=== PATIENT | male | born 1960 | race Hispanic/Latino ===

== ENCOUNTER 2025-02-11 11:20 | Emergency (ER) | payer MEDICARE ==
[~2025-02-11] VITALS: Ht 167.6 cm; Wt 70.3 kg
[2025-02-11 12:01] LABS: IMMATURE GRANULOCYTE ABSOLUTE 1.88 K/uL (0-1); NUCLEATED RED BLOOD CELLS 0.0 % (0.0-0.19); PLATELET COUNT (AUTO) 236 K/uL (130-400); RED BLOOD CELL COUNT(AUTO) 4.96 MIL/uL (4.50-6.20); RED CELL DISTRIBUTION WIDTH 13.7 % (11.0-15.5); WHITE BLOOD COUNT (AUTO) 24.3 K/uL (4.8-10.8)
[2025-02-11 12:08] LABS: CREATININE 1.0 mg/dL (0.5-1.3); GLOMERULAR FILTR. RATE CALC 84.0 mL/min (>90); GLUCOSE,RANDOM 173.0 mg/dL (70-105); SODIUM SERUM 133.0 mmol/L (136-145); UREA NITROGEN, BLOOD 20.0 mg/dL (7-18)
[2025-02-11 12:32] LABS: APPEARANCE,URINE CLOUDY (CLEAR); GLUCOSE, URINE (UA) NEGATIVE (NEGATIVE); LEUKOCYTE ESTERASE ,URINE NEGATIVE Leu/uL (NEGATIVE); NITRATE,URINE NEGATIVE (NEGATIVE); OCCULT BLOOD,URINE SMALL (NEGATIVE)
[2025-02-11 12:33] LABS: ADD UA MICROSCOPIC YES
[2025-02-11 12:40] LABS: SQUAMOUS EPITHELIAL CELL,UR RARE /HPF (0-2)
--- NOTE | 2025-02-11 12:48 | HMCIMG ---
EXAM: CR Chest, 1 View. CLINICAL HISTORY: left sided cp COMPARISON: None provided. FINDINGS: LUNGS: Airspace disease in the left perihilar and left basilar region, may reflect an infectious and/or inflammatory process. PLEURAL SPACES: No evidence of pleural effusion or pneumothorax. MEDIASTINUM: The cardiomediastinal silhouette is within normal limits. BONES: No acute osseous abnormality. IMPRESSION: 1. Airspace disease in the left perihilar and left basilar region, possibly representing infection and/or inflammation. /[place]
[2025-02-11 12:49] LABS: CREATINE KINASE, TOTAL 12.0 U/L (21-232)
--- NOTE | 2025-02-11 13:37 | EKG ---
[facility] Test Date: 2025-02-11 Test Time: 12:53:27 Pat Name: MARITZA DOMINGUEZ Department: ED Room: Gender: M [employer]: [facility] : 1960 Requested By: JAIR KWOK Order Number: [id number] Reading MD: Geovanny Catherine Measurements Intervals [place] Rate: 112 P: 41 FL: 149 QRS: -42 QRSD: 89 T: 34 QT: 303 QTc: 414 Interpretive Statements Sinus tachycardia Probable left ventricular hypertrophy ST elevation, consider anterolateral injury vs early repolarization No previous ECG available for comparison Electronically Signed On 02-11-2025 18:07:37 CDT by Geovanny Catherine Please click the below link to view image of tracing.
[2025-02-11] MEDS ORDERED: AZIT250T9 PO (13:52)
[2025-02-11] MEDS ORDERED: AMOX1TAB16 PO (13:52)
--- NOTE | 2025-02-11 13:53 | ERN ---
General Chief Complaint: Other Problems Stated Complaint: BODYACHES Time Seen by MD: 11:25 Time Seen by Midlevel: 11:25 Source: patient History of Present Illness Initial Comments 64-year-old male presents to the ER for evaluation of generalized body weakness and left-sided chest pain. Denies any other symptoms Allergies: Coded Allergies: No Known Drug Allergies (Unverified Allergy, Unknown, 02/11/25) Past Medical History Past Medical History: No Pertinent History Past Surgical History: None ROS Dictation CONSTITUTIONAL: Negative except for HPI HEAD/FACE: Negative except for HPI EENT: Negative except for HPI RESPIRATORY: Negative except for HPI GASTROINTESTINAL/ABDOMINAL: Negative except for HPI GENITOURINARY: Negative except for HPI MUSCULOSKELETAL: Negative except for HPI INTEGUMENTARY: Negative except for HPI NEUROLOGICAL/PSYCH: Negative except for HPI HEMATOLOGIC/LYMPHATIC: Negative except for HPI All Systems Negative, Except as noted above. 13 point review of systems assessed and all negative except for above. Physical Exam Physical Exam Dictation Vital Signs reviewed General Appearance: Alert, oriented x 3, no acute distress, well developed, nourished. Head and Face: non-traumatic. Eyes: PERRL, pink conjunctivas, eyelid no trauma, anterior chamber with arcus senilis. Ears: Pinnas intact and no signs of trauma or erythema ear canals clear and no discharge TM no erythema Nose: No discharge, no bleeding. Oropharynx: Mouth normal, tongue pink, pharynx clear,no erythema, tonsils no exudates, no abscesses noted, mucous membrane moist Neck: Supple, non-tender, no thyromegaly, no masses, no JVD, no bruits Breast:Deferred Chest:No tenderness, no crepitus, no paradoxical movement, no retractions Lungs: Rales to the left lung chun, well-ventilated, symmetric,, no wheezing, no rhonchi, no stridor, good breath sounds bilaterally Heart: Regular rate, regular rhythm, no murmur, no gallops Vascular: no peripheral edema, Abdomen: Soft, positive bowel sounds, nondistended, no guarding, nontender, no rebound, no masses no hepatomegaly, no splenomegaly, no Gibbs's sign, no hernias. Rectal: Deferred Genital: Deferred Neurological: Normal speech, motor function intact, sensory function intact Musculoskeletal: Neck nontender, full range of motion, back nontender, full range of motion, Extremities: nontender, full range of motion Skin: Color pink, dry, no turgor, no rash, no lacerations, no abrasions, no contusions. Lymphatic: Deferred Results Laboratory and Microbiology Lab and Micro Result Laboratory Tests Test 02/11/25 11:45 02/11/25 12:13 White Blood Count 24.3 K/uL (4.8-10.8) H Red Blood Count 4.96 MIL/uL (4.50-6.20) Hemoglobin 13.8 g/dL (14.0-18.0) L Hematocrit 40.8 % (42-54) L Mean Corpuscular Volume 82.3 fL (79-99) Mean Corpuscular Hemoglobin 27.8 pg (27.0-33.0) Mean Corpuscular Hemoglobin Concent 33.8 g/dL (32.0-36.0) Red Cell Distribution Width 13.7 % (11.0-15.5) Platelet Count 236 K/uL (130-400) Mean Platelet Volume 9.5 fL (7.5-10.5) Immature Granulocyte % (Auto) 7.7 % (0-1) H Neutrophils (%) (Auto) 78.9 % (40.0-77.0) H Lymphocytes (%) (Auto) 5.2 % (21.0-51.0) L Monocytes (%) (Auto) 7.6 % (3.0-13.0) Eosinophils (%) (Auto) 0.1 % (0.0-8.0) Basophils (%) (Auto) 0.5 % (0.0-5.0) Neutrophils # (Auto) 19.2 K/uL (1.8-7.7) H Lymphocytes # (Auto) 1.3 K/uL (1.0-4.8) Monocytes # (Auto) 1.8 K/uL (0.1-1.0) H Eosinophils # (Auto) 0.02 K/uL (0.00-0.70) Basophils # (Auto) 0.12 K/uL (0.00-0.20) Absolute Immature Granulocyte (auto 1.88 K/uL (0-1) H Nucleated Red Blood Cells 0.0 % (0.0-0.19) White Cell Morphology Comment See comments Sodium Level 133 mmol/L (136-145) L Potassium Level 3.7 mmol/L (3.5-5.1) Chloride Level 97 mmol/L (101-111) L Carbon Dioxide Level 31 mmol/L (21-32) Blood Urea Nitrogen 20 mg/dL (7-18) H Creatinine 1.0 mg/dL (0.5-1.3) Glomerular Filtration Rate Calc 84 mL/min (>90) Random Glucose 173 mg/dL (70-105) H Total Calcium 8.7 mg/dL (8.5-10.1) Magnesium Level 2.00 mg/dL (1.80-2.40) Total Creatine Kinase 12 U/L (21-232) L Troponin I High Sensitivity < 4 ng/L (4-75) L Urine Color YELLOW (YELLOW) Urine Appearance CLOUDY (CLEAR) H Urine pH 5.5 (5.0-8.0) Urine Specific [place] 1.021 (1.001-1.031) Urine Protein 30 mg/dL (NEGATIVE) H Urine Glucose (UA) NEGATIVE mg/dL (NEGATIVE) Urine Ketones NEGATIVE mg/dL (NEGATIVE) Urine Occult Blood SMALL (NEGATIVE) H Urine Nitrate NEGATIVE (NEGATIVE) Urine Bilirubin NEGATIVE mg/dL (NEGATIVE) Urine Urobilinogen 0.2 mg/dL (0.2-1.0) Urine Leukocyte Esterase NEGATIVE [place]/uL Urine RBC 2-5 /HPF (0-1) H Urine WBC 2-5 /HPF (0-1) H Urine Squamous Epithelial Cells RARE /HPF (0-2) Urine Bacteria None /HPF (None Seen) Labs Reviewed?: Yes MDM MDM: Differential diagnosis: ACS, dehydration, electrolyte abnormality, pneumonia There are no social concerns with this patient. Prescription drug management Prescriptions will include: Augmentin and azithromycin Medical management and examination interpretation discussions were had by me w ith other qualified healthcare professionals as indicated for the patient's care. ED Course Orders Procedure Category Date Status Time Cbc With Differential LAB 02/11/25 Complete 11:34 Basic Metabolic Panel LAB 02/11/25 Complete 11:34 Urinalysis Profile LAB 02/11/25 Complete 12:12 12 Lead Ekg Tracing- EKG 02/11/25 Complete Technical 12:23 Troponin I High LAB 02/11/25 Complete Sensitivity 12:23 Urinalysis Profile LAB 02/11/25 Logged 12:23 Creatine Kinase, Total LAB 02/11/25 Complete 12:23 Magnesium LAB 02/11/25 Complete 12:23 Chest 1vw RAD 02/11/25 Resulted 12:23 Ceftriaxone 2gm Vial PHA 02/11/25 Complete (Rocephin 2gm Inj) 13:00 Current Medications Medications (Trade) Dose Ordered Sig/Santa Route PRN Reason Start Time Stop Time Status Last Admin Dose Admin Ceftriaxone Sodium (Rocephin 2gm Inj) 2 gm ONCE ONCE IVPB 02/11/25 13:00 02/11/25 13:01 DC 02/11/25 13:09 Vital Signs Date Time Temp Pulse Resp B/P (MAP) Pulse Ox O2 Delivery O2 Flow Rate FiO2 02/11/25 11:25 98.8 113 18 126/63 97 DX & DISP Disposition: Discharge Departure Impression: Primary Impression: Pneumonia involving left lung Condition: Stable Scripts Azithromycin (Azithromycin) 250 Mg Tablet 1 TAB PO AD for 5 Days, #6 TAB 0 Refills 2 the first day followed by 1 for days 2-5 Prov: JAIR KWOK PAC 02/11/25 Amoxicillin/Potassium Clav (Amox Tr-K Clv 875-125 mg Tab) 875 Mg-125 Mg Tablet 1 EACH PO BID for 10 Days, #20 TAB 0 Refills Prov: JAIR KWOK PAC 02/11/25 Referrals: SELF,REFERRAL (PCP) Time of Disposition: 13:51 I have reviewed the case, and I agree with, Diagnosis and Plan I performed the substantive portion of the visit. I have reviewed and personally made and approve the management plan that is documented in the note by myself or the JONE. I acknowledge for responsibility for the patient's management plan. JAIR KWOK PAC Feb 11, 2025 13:53
[2025-02-11 13:58] VITALS: BP 124/64; PULSE 81; RESP 10; TEMP 97.9; O2SAT 99
== END 2025-02-11 14:08 | disposition home or self-care (01) ==
LOC: EDH 11:20
DX: J18.9 Pneumonia, unspecified organism (principal)
CPT/HCPCS: 99285; 96365; 71045; 83735; 82550; 84484; 80048; 85025; 81001; 36415; 93005; J0696